=== PATIENT | female | born 1945 | race Caucasian/White ===

== ENCOUNTER 2023-06-08 13:01 | Emergency (ER) | payer OTHER ==
[2023-06-08 14:06] LABS: Absolute Lymphocytes (CBC) 1.5 K/uL (0.7-4.9); Hematocrit 47.3 % (36.0-45.0); Lymphocytes % 18.1 % (15.3-44.8); MCV 90.4 fL (80-100); MPV 8.7 fL (7.6-11.3); Platelets 228 thou/uL (152-406); RBC Red Blood Cell Count 5.23 M/uL (3.86-4.86)
[2023-06-08] MEDS ORDERED: ONDANSETRON 4 MG/2 ML VIAL ONE (14:15)
[2023-06-08] MEDS ORDERED: MORPHINE 2 MG/ML SYR ONE ×3 (14:15→18:36)
[2023-06-08 14:25] LABS: Bilirubin Direct 0.2 mg/dL (0-0.2); Bilirubin Indirect, Calculated 0.5 mg/dL (0.2-0.8); Bilirubin Total 0.7 mg/dL (0.2-1.0); Magnesium 2.1 mg/dL (1.6-2.4); Potassium 3.8 mEq/L (3.5-5.1); Protein, Total 7.5 g/dL (6.4-8.2); Troponin High Sensitivity 11.5 pg/mL (<58.9)
[2023-06-08 14:38] LABS: Protime INR 1.04
--- NOTE | 2023-06-08 15:35 | RAD REPORT ---
EXAM DESCRIPTION: Remberto Single View06/08/2023 2:57 pm CLINICAL HISTORY: COUGH COMPARISON: No comparisons TECHNIQUE: Portable AP view of the chest. FINDINGS: The lungs are clear. Mild chronic interstitial changes could relate to emphysema. No pneum othorax or effusion. The cardiomediastinal contours are unremarkable. IMPRESSION: No acute cardiopulmonary process.
--- NOTE | 2023-06-08 15:37 | RAD REPORT ---
EXAM DESCRIPTION: RAD - Femur Left - 06/08/2023 2:57 pm CLINICAL HISTORY: PAIN COMPARISON: No comparisons TECHNIQUE: Left femur, 2 views. FINDINGS: Mildly comminuted and angulated intertrochanteric femoral neck fracture. There is no disl ocation or periosteal reaction noted. No acute or suspicious bony finding. IMPRESSION: Mildly comminuted and angulated intertrochanteric femoral neck fracture.
--- NOTE | 2023-06-08 15:38 | RAD REPORT ---
EXAM DESCRIPTION: RAD - Pelvis - 06/08/2023 2:57 pm CLINICAL HISTORY: PAIN COMPARISON: No comparisons TECHNIQUE: Single AP view of the pelvis. FINDINGS: Mildly comminuted and angulated intertrochanteric femoral neck fracture. The visualized pe lvic ring is otherwise intact with mild diffuse osteopenia, somewhat limiting evaluation. No suspicio us osseous lesions. Other pelvic joints are unremarkable. Visualized aspects of the abdomen and soft tissues are unremarkable. IMPRESSION: Mildly comminuted and angulated intertrochanteric femoral neck fracture.
--- NOTE | 2023-06-08 16:00 | ER ---
Nurse's Notes [facility] Name: Celeste Hernandez Age: 78 yrs Sex: Female : 1945 Arrival Date: 06/08/2023 Time: 13:01 Bed 15 Private MD: Diagnosis: Fall on same level, unspecified;Essential (primary) hypertension;Displaced intertrochanteric fracture of left femur, initial encounter for closed fracture Presentation: 06/08 13:26 Chief complaint: EMS states: [place] sidewalk [place] [facility], c/o left buttock, hip, and eh3 upper thigh pain. EMS reports BP of 243/104. Coronavirus screen: Vaccine status: Patient reports being unvaccinated. Ebola Screen: No symptoms or risks identified at this time. Initial Sepsis Screen: Does the patient meet any 2 criteria? No. Patient's initial sepsis screen is negative. Does the patient have a suspected source of infection? No. Patient's initial sepsis screen is negative. Risk Assessment: Do you want to hurt yourself or someone else? Patient reports no desire to harm self or others. Onset of symptoms was June 08, 2023. 13:26 Method Of Arrival: EMS: [facility] 13:26 Acuity: BERTRAM 3 eh3 Triage Assessment: 13:28 General: Appears in no apparent distress. uncomfortable, Behavior is cooperative, eh3 appropriate for age. Pain: Complains of pain in left hip. Neuro: Level of Consciousness is awake, alert, obeys commands, Oriented to person, place, time, situation. Cardiovascular: Capillary refill < 3 seconds Patient's skin is warm and dry. Respiratory: Airway is patent Respiratory effort is even, unlabored, Respiratory pattern is regular, symmetrical. GI: Abdomen is round non-distended. Derm: Skin is pink, warm \T\ dry. Musculoskeletal: Circulation, motion, and sensation intact. Historical: - Allergies: 13:28 No Known Allergies; eh3 - PMHx: 13:28 Hypertensive disorder; eh3 - Immunization history:: Adult Immunizations not up to date. - Social history:: Smoking status: Patient reports the use of cigarette tobacco products, smokes 0.25 packs per day, Patient uses alcohol, occasionally. - Family history:: not pertinent. Screenin:29 [facility] ED Fall Risk Assessment (Adult) Score/Fall Risk Level 0 - 2 = Low Risk. Abuse 3 screen: Denies threats or abuse. Denies injuries from another. Nutritional screening: No deficits noted. Tuberculosis screening: No symptoms or risk factors identified. Assessment: 13:29 Reassessment: No changes from previously documented assessment. See triage assessment. [facility] 14:26 Reassessment: Patient appears in no apparent distress at this time. Patient and/or 3 family updated on plan of care and expected duration. Pain level reassessed. Patient is alert, oriented x 3, equal unlabored respirations, skin warm/dry/pink. 15:30 Reassessment: Patient appears in no apparent distress at this time. Patient and/or 3 family updated on plan of care and expected duration. Pain level reassessed. Patient is alert, oriented x 3, equal unlabored respirations, skin warm/dry/pink. 16:30 Reassessment: Patient appears in no apparent distress at this time. Patient and/or 3 family updated on plan of care and expected duration. Pain level reassessed. Patient is alert, oriented x 3, equal unlabored respirations, skin warm/dry/pink. 17:30 Reassessment: Patient appears in no apparent distress at this time. Patient and/or 3 family updated on plan of care and expected duration. Pain level reassessed. Patient is alert, oriented x 3, equal unlabored respirations, skin warm/dry/pink. Vital Signs: 13:26 BP 256 / 78; Pulse 71; Resp 18; Temp 98.4(O); Pulse Ox 99% on R/A; Weight 52.62 kg; 3 Height 5 ft. 3 in. ; Pain 9/10; 13:30 BP 248 / 85; Pulse 67; Resp 18; Pulse Ox 99% on R/A; 3 14:00 BP 241 / 91; Pulse 68; Resp 18; Pulse Ox 100% on R/A; 3 14:30 BP 232 / 89; Pulse 69; Resp 18; Pulse Ox 98% on R/A; 3 15:00 BP 211 / 102; Pulse 74; Resp 17; Pulse Ox 98% on R/A; 3 15:30 BP 230 / 81; Pulse 71; Resp 15; Pulse Ox 98% on R/A; 3 16:00 BP 228 / 118; Pulse 76; Resp 17; Pulse Ox 97% on R/A; eh3 16:30 BP 227 / 86; Pulse 74; Resp 17; Pulse Ox 95% on R/A; eh3 17:00 BP 183 / 67; Pulse 66; eh3 17:09 BP 177 / 65; Pulse 66; eh3 17:30 BP 156 / 60; Pulse 60; Resp 18; Pulse Ox 96% on R/A; eh3 18:00 BP 158 / 58; Pulse 60; Resp 17; Pulse Ox 95% on R/A; eh3 13:26 Body Mass Index 20.55 (52.62 kg, 160.02 cm) 3 13:26 Pain Scale: Adult [facility] ED Course: 13:26 Patient arrived in ED. eh3 13:28 Triage completed. 3 13:28 Arm band placed on. eh3 13:29 Patient has correct armband on for positive identification. Bed in low position. Call 3 light in reach. Side rails up X2. Adult w/ patient. Provided Education on: use of call boss. Client placed on continuous cardiac and pulse oximetry monitoring. NIBP monitoring applied. 13:46 Kasia Moise, RN is Primary Nurse. 3 13:48 Marshall Rodriguez MD is Attending Physician. temo 14:59 XRAY Chest (1 view) In Process Unspecified. EDMS 14:59 Pelvis XRAY In Process Unspecified. EDMS 14:59 Femur Left XRAY In Process Unspecified. EDMS 16:04 called [facility] for Transfer talked to Winifred. sp 17:09 called [facility] with [facility] with blood pressure 183/67. [facility] will sp call back once a bed is available. 18:12 [facility] WILL TRANSFER PT TO [facility] TALKED TO RIRI. sp 18:32 No provider procedures requiring assistance completed. Patient transferred, IV remains eh3 in place. Administered Medications: 14:15 Drug: morphine IVP or IV 2 mg IVP once over 4 mins Route: IVP; Infused Over: 4 mins; 3 Site: right antecubital; 15:00 Follow up: Response: No adverse reaction; Pain is decreased; RASS: Alert and Calm (0) [facility] 14:15 Drug: Ondansetron IVP 4 mg IVP once; over 2 minutes Route: IVP; Site: right antecubital;3 15:00 Follow up: Response: No adverse reaction 3 16:00 Drug: morphine IVP or IV 2 mg IVP once over 4 mins Route: IVP; Infused Over: 4 mins; 3 Site: right antecubital; 17:00 Follow up: Response: No adverse reaction; Pain is decreased; RASS: Alert and Calm (0) 3 16:00 Drug: cloNIDine PO 0.2 mg PO once Route: PO; 3 18:00 Follow up: Response: No adverse reaction; Blood pressure is lowered 3 16:00 Drug: Norvasc PO 10 mg PO once Route: PO; 3 18:00 Follow up: Response: No adverse reaction; Blood pressure is lowered 3 18:30 Not Given (Physician Discretion): [id number] mg PO once 3 18:30 Drug: morphine IVP or IV 2 mg IVP once over 4 mins Route: IVP; Infused Over: 4 mins; 3 Site: right antecubital; 18:45 Follow up: Response: No adverse reaction 3 20:35 Follow up: Response: Medication administered at discharge. 3 Medication: 18:32 VIS not applicable for this client. 3 Outcome: 16:00 ER care complete, transfer ordered by . [facility] 18:32 Patient left the ED. [facility] 18:32 Transferred by ground EMS to [facility], Transfer form completed. [facility] 18:32 Condition: stable 18:32 Discharge instructions given to patient, family, Instructed on the need for transfer, Signatures: Dispatcher [employer] Marshall Sims MD MD cha Pinkerton, Shawna sp Lewis, Lynsay, RN RN [facility] Kasia Moise RN RN 3
--- NOTE | 2023-06-08 16:01 | EDPHYS ---
Physician Documentation [facility] Name: Celeste Hernandez Age: 78 yrs Sex: Female : 1945 Arrival Date: 06/08/2023 Time: 13:01 Bed 15 Private MD: ED Physician Marshall Rodriguez HPI: 06/08 15:54 This 78 yrs old Female presents to ER via EMS with complaints of Fall Injury. temo 15:54 Details of fall: The patient fell from an upright position, while walking. Onset: The temo symptoms/episode began/occurred just prior to arrival. Associated injuries: The patient sustained left hip, decreased range of motion, obvious fracture, painful injury, swelling. Historical: - Allergies: 13:28 No Known Allergies; eh3 - PMHx: 13:28 Hypertensive disorder; eh3 - Immunization history:: Adult Immunizations not up to date. - Social history:: Smoking status: Patient reports the use of cigarette tobacco products, smokes 0.25 packs per day, Patient uses alcohol, occasionally. - Family history:: not pertinent. ROS: 15:54 Constitutional: Negative for fever, chills, and weight loss, Eyes: Negative for injury, temo pain, redness, and discharge, ENT: Negative for injury, pain, and discharge, Neck: Negative for injury, pain, and swelling, Cardiovascular: Negative for chest pain, palpitations, and edema, Respiratory: Negative for shortness of breath, cough, wheezing, and pleuritic chest pain, Abdomen/GI: Negative for abdominal pain, nausea, vomiting, diarrhea, and constipation, Back: Negative for injury and pain, : Negative for injury, bleeding, discharge, and swelling, Skin: Negative for injury, rash, and discoloration, Neuro: Negative for headache, weakness, numbness, tingling, and seizure, Psych: Negative for depression, anxiety, suicide ideation, homicidal ideation, and hallucinations, Allergy/Immunology: Negative for hives, rash, and allergies, Endocrine: Negative for neck swelling, polydipsia, polyuria, polyphagia, and marked weight changes, Hematologic/Lymphatic: Negative for swollen nodes, abnormal bleeding, and unusual bruising, 15:54 MS/extremity: Positive for decreased range of motion, pain, tenderness, of the left hip and left upper thigh, Exam: 15:54 Constitutional: This is a well developed, well nourished patient who is awake, alert, temo and in no acute distress. Head/Face: Normocephalic, atraumatic. Eyes: Pupils equal round and reactive to light, extra-ocular motions intact. Lids and lashes normal. Conjunctiva and sclera are non-icteric and not injected. Cornea within normal limits. Periorbital areas with no swelling, redness, or edema. ENT: Nares patent. No nasal discharge, no septal abnormalities noted. Tympanic membranes are normal and external auditory canals are clear. Oropharynx with no redness, swelling, or masses, exudates, or evidence of obstruction, uvula midline. Mucous membranes moist. Neck: Trachea midline, no thyromegaly or masses palpated, and no cervical lymphadenopathy. Supple, full range of motion without nuchal rigidity, or vertebral point tenderness. No Meningismus. Chest/axilla: Normal chest wall appearance and motion. Nontender with no deformity. No lesions are appreciated. Cardiovascular: Regular rate and rhythm with a normal S1 and S2. No gallops, murmurs, or rubs. Normal PMI, no JVD. No pulse deficits. Respiratory: Lungs have equal breath sounds bilaterally, clear to auscultation and percussion. No rales, rhonchi or wheezes noted. No increased work of breathing, no retractions or nasal flaring. Abdomen/GI: Soft, non-tender, with normal bowel sounds. No distension or tympany. No guarding or rebound. No evidence of tenderness throughout. Back: No spinal tenderness. No costovertebral tenderness. Full range of motion. Female : Normal external genitalia. Skin: Warm, dry with normal turgor. Normal color with no rashes, no lesions, and no evidence of cellulitis. Neuro: Awake and alert, GCS 15, oriented to person, place, time, and situation. Cranial nerves II-XII grossly intact. Motor strength 5/5 in all extremities. Sensory grossly intact. Cerebellar exam normal. Normal gait. Psych: Awake, alert, with orientation to person, place and time. Behavior, mood, and affect are within normal limits. 15:54 ECG was reviewed by the Attending Physician. 15:54 Musculoskeletal/extremity: ROM: limited active range of motion due to pain, limited passive range of motion due to pain, in the left hip, left gluteal fold and left inner thigh, DVT Exam: negative Homans' sign noted on exam, no appreciated bluish discoloration, no erythema, no increased warmth, pain, swelling, tenderness, Vital Signs: 13:26 BP 256 / 78; Pulse 71; Resp 18; Temp 98.4(O); Pulse Ox 99% on R/A; Weight 52.62 kg; eh3 Height 5 ft. 3 in. ; Pain 9/10; 13:30 BP 248 / 85; Pulse 67; Resp 18; Pulse Ox 99% on R/A; eh3 14:00 BP 241 / 91; Pulse 68; Resp 18; Pulse Ox 100% on R/A; eh3 14:30 BP 232 / 89; Pulse 69; Resp 18; Pulse Ox 98% on R/A; eh3 15:00 BP 211 / 102; Pulse 74; Resp 17; Pulse Ox 98% on R/A; eh3 15:30 BP 230 / 81; Pulse 71; Resp 15; Pulse Ox 98% on R/A; eh3 16:00 BP 228 / 118; Pulse 76; Resp 17; Pulse Ox 97% on R/A; eh3 16:30 BP 227 / 86; Pulse 74; Resp 17; Pulse Ox 95% on R/A; eh3 17:00 BP 183 / 67; Pulse 66; eh3 17:09 BP 177 / 65; Pulse 66; eh3 17:30 BP 156 / 60; Pulse 60; Resp 18; Pulse Ox 96% on R/A; eh3 18:00 BP 158 / 58; Pulse 60; Resp 17; Pulse Ox 95% on R/A; 3 13:26 Body Mass Index 20.55 (52.62 kg, 160.02 cm) [facility] 13:26 Pain Scale: Adult [facility] MDM: 13:48 Patient medically screened. temo 15:56 Differential diagnosis: fracture, multiple trauma, sprain, strain. Data reviewed: vital temo signs, nurses notes, EMS record, lab test result(s), EKG, radiologic studies, plain films. Consideration of Admission/Observation Escalation of care including admission/observation considered. I considered the following discharge prescriptions or medication management in the emergency department Medications were administered in the Emergency Department. See MAR. Test considered but Not performed: MRI: no pelvis mri. Historians other than the Patient: EMS: ems well informed. Family Member: daughter. Care significantly affected by the following chronic conditions: Hypertension. Counseling: I had a detailed discussion with the patient and/or guardian regarding the historical points, exam findings, and any diagnostic results supporting the discharge/admit diagnosis, lab results, radiology results, the need to transfer to another facility, for higher level of care, [facility] does not immediately have the required specialist. 06/08 13:45 Order name: Basic Metabolic Panel; Complete Time: 15:14 06/08 13:45 Order name: CBC with Diff; Complete Time: 15:14 06/08 13:45 Order name: LFT's; Complete Time: 15:14 06/08 13:45 Order name: Magnesium; Complete Time: 15:14 06/08 13:45 Order name: NT PRO-BNP; Complete Time: 15:14 06/08 13:45 Order name: PT-INR; Complete Time: 15:14 06/08 13:45 Order name: Troponin HS; Complete Time: 15:14 06/08 13:45 Order name: Urinalysis w/ reflexes; Complete Time: 16:54 06/08 13:45 Order name: XRAY Chest (1 view); Complete Time: 15:53 06/08 13:45 Order name: Pelvis XRAY; Complete Time: 15:53 06/08 13:45 Order name: Femur Left XRAY; Complete Time: 15:53 06/08 13:45 Order name: EKG; Complete Time: 13:45 06/08 13:45 Order name: Cardiac monitoring; Complete Time: 13:46 06/08 13:45 Order name: EKG - Nurse/Tech; Complete Time: 15:07 06/08 13:45 Order name: IV Saline Lock; Complete Time: 14:00 06/08 13:45 Order name: Labs collected and sent; Complete Time: 14:00 06/08 13:45 Order name: O2 Per Protocol; Complete Time: 13:46 06/08 13:45 Order name: O2 Sat Monitoring; Complete Time: 13:46 06/08 13:45 Order name: Blood Glucose Level; Complete Time: 14:00 06/08 15:58 Order name: Splint: left hip temo EC:54 Rate is 69 beats/min. Rhythm is regular. QRS Welling is Normal. MI interval is normal. QRS teom interval is normal. QT interval is normal. No Q waves. T waves are Normal. No ST changes noted. Clinical impression: NSR w/ Non-specific ST/T Changes, LVH, and No evidence of ischemia. Interpreted by me. Reviewed by me. Administered Medications: 14:15 Drug: morphine IVP or IV 2 mg IVP once over 4 mins Route: IVP; Infused Over: 4 mins; 3 Site: right antecubital; 15:00 Follow up: Response: No adverse reaction; Pain is decreased; RASS: Alert and Calm (0) 3 14:15 Drug: Ondansetron IVP 4 mg IVP once; over 2 minutes Route: IVP; Site: right antecubital;3 15:00 Follow up: Response: No adverse reaction 3 16:00 Drug: morphine IVP or IV 2 mg IVP once over 4 mins Route: IVP; Infused Over: 4 mins; 3 Site: right antecubital; 17:00 Follow up: Response: No adverse reaction; Pain is decreased; RASS: Alert and Calm (0) 3 16:00 Drug: cloNIDine PO 0.2 mg PO once Route: PO; eh3 18:00 Follow up: Response: No adverse reaction; Blood pressure is lowered eh3 16:00 Drug: Norvasc PO 10 mg PO once Route: PO; eh3 18:00 Follow up: Response: No adverse reaction; Blood pressure is lowered eh3 18:30 Not Given (Physician Discretion): [id number] mg PO once eh3 18:30 Drug: morphine IVP or IV 2 mg IVP once over 4 mins Route: IVP; Infused Over: 4 mins; 3 Site: right antecubital; 18:45 Follow up: Response: No adverse reaction 3 20:35 Follow up: Response: Medication administered at discharge. 3 Disposition Summary: 06/08/23 16:00 Transfer Ordered Notes: Transfer Location: [facility] temo Reason: Higher level of care temo Condition: Stable temo Problem: new temo Symptoms: have improved temo Accepting Physician: to ortho at [facility] , medicine to accept(06/08/23 18:32) ll1 Diagnosis - Fall on same level, unspecified temo - Essential (primary) hypertension temo - Displaced intertrochanteric fracture of left femur, initial encounter for closed temo fracture Forms: - Medication Reconciliation Form temo - SBAR form temo Signatures: Dispatcher [employer] EDMarshall Arauz MD MD cha Lewis, Lynsay, RN RN ll1 Kasia Moise RN RN eh3 Corrections: (The following items were deleted from the chart) 14:16 13:46 Hip Left 2 View+RAD.RAD.BRZ ordered. EDOR EDMS 18:32 16:00 to ortho at [facility] , medicine to accept temo ll1
[2023-06-08] MEDS ORDERED: cloNIDine HCL 0.1 MG TAB ONE (16:11)
[2023-06-08] MEDS ORDERED: AMLODIPINE 10 MG TAB ONE (16:12)
[2023-06-08 16:24] LABS: Specific Gravity 1.012 (1.005-1.030); Urine Bacteria <20 /HPF (<20); Urine Bilirubin NEGATIVE (Negative); Urine Blood Negative (Negative); Urine Clarity Extremely Turbid (Clear); Urine Color Light-Yellow (Yellow); Urine Glucose NEGATIVE (Negative); Urine Mucus Slight /HPF (None Seen); Urine Protein TRACE (Negative); Urine RBC <5 /HPF (None Seen); Urine Urobilinogen Normal (Normal); Urine pH 7.5 (5.0-7.0)
[2023-06-08 18:49] VITALS: TEMP 98.4
[2023-06-08 19:01] VITALS: BP 158/58; O2SAT 95
--- NOTE | 2023-06-12 15:32 | EKG ---
Test Date: 2023-06-08 Test Time: 14:53:10 Tag Stringer: ANDREA MEASUREMENT RESULTS: Intervals: Rate: 69 [place]: 176 QRSD: 146 QT: 424 QTc: 454 [place]: P: 71 [place]: 176 QRS: -39 T: 44 INTERPRETIVE STATEMENTS: Normal sinus rhythm Left axis deviation Right bundle branch block Voltage criteria for left ventricular hypertrophy Abnormal ECG No previous ECG available for comparison Electronically Signed On 06-12-23 15:17:39 CREDIT CARD INTERVIEWER by Marko Galdamez
== END 2023-06-08 18:32 | disposition short-term general hospital (02) ==
LOC: ER 13:01
DX: S72.142A Displaced intertrochanteric fracture of left femur, initial encounter for closed fracture (principal); W18.30XA Fall on same level, unspecified, initial encounter; I10 Essential (primary) hypertension; F17.210 Nicotine dependence, cigarettes, uncomplicated
CPT/HCPCS: 93005; 85025; 81001; 80048; 36415; 83735; 85610; 80076; 84484; 83880; 71045; 72170; 73552; 96375; 96374; 99285; J2270 ×3; J2405